=== PATIENT | male | born 1985 | race Caucasian/White ===

== ENCOUNTER 2024-06-20 18:44 | Inpatient (IN) | payer SELFPAY ==
[~2024-06-20] VITALS: Ht 167.6 cm; Wt 68.0 kg
[2024-06-20] MEDS: SODIUM CHLORIDE 0.9% 1,000 ML IV ONE (20:06)
[2024-06-20] MEDS: NALOXONE HCL 1MG/ML 2ML VIAL IV ONE (20:06)
[2024-06-20 20:20] LABS: BASOPHILS % 0.5 % (0.0-2.0); EOSINOPHILS % 0.8 % (0.0-5.0); HEMOGLOBIN. 12.5 g/dL (14.0-18.0); LYMPHOCYTES % 16.1 % (20.0-50.0); MEAN CORPUSCULAR HEMOGLOBIN 32.4 pg (28.0-32.0); MEAN CORPUSCULAR VOLUME 98.2 fL (80.0-94.0); MEAN PLATELET VOLUME 6.8 fl (7.4-10.4); MONOCYTES % 6.3 % (2.0-8.0); NEUTROPHILS % 76.3 % (40.0-76.0); PLATELET 249 x1000/uL (130-400); RED BLOOD CELL COUNT 3.87 mill/uL (4.7-6.1); RED CELL DISTRIBUTION WIDTH 12.6 % (11.6-14.6); WHITE BLOOD COUNT 5.9 x1000/uL (4.5-11.0)
[2024-06-20 20:27] LABS: CHLORIDE 106 mEq/L (98-107); POTASSIUM 3.7 mEq/L (3.5-5.1); SODIUM 136 mEq/L (136-145)
[2024-06-20 20:28] LABS: CALCIUM 7.9 mg/dL (8.7-10.4); CARBON DIOXIDE 23 mEq/L (21-32)
[2024-06-20 20:33] LABS: CREATININE 0.9 mg/dL (0.6-1.3); GLUCOSE 101 mg/dL (70-105)
[2024-06-20 20:47] LABS: UREA NITROGEN BLOOD < 5 mg/dL (9-23)
[2024-06-20 20:53] LABS: CLARITY URINE CLEAR (CLEAR); COLOR URINE YELLOW (YELLOW); GLUCOSE URINE NEGATIVE (NEGATIVE); KETONES URINE NEGATIVE (NEGATIVE); LEUKOCYTE ESTERASE URINE NEGATIVE (NEGATIVE); NITRITE URINE NEGATIVE (NEGATIVE); OCCULT BLOOD URINE NEGATIVE (NEGATIVE); PH URINE 5.5 (4.5-8.0); PROTEIN URINE 1+ (NEGATIVE); SPECIFIC GRAVITY URINE 1.005 (1.005-1.030); UROBILINOGEN URINE 0.2 E.U./dL (0.2-1.0)
[2024-06-20 21:22] LABS: BACTERIA URINE NONE SEEN; RBC URINE NONE SEEN /hpf (0-2); SQUAMOUS EPITHELIAL CELL URINE NONE SEEN /lpf (RARE/1+); WBC URINE NONE SEEN /hpf (0-2)
[2024-06-21] MEDS ORDERED: IPRATROPIUM/ALBUTEROL 0.5-3(2.5)MG/3ML NEB HHN PRN (04:15)
[2024-06-21] MEDS ORDERED: ACETAMINOPHEN 325MG TABLET PO PRN ×2 (04:15)
[2024-06-21] MEDS ORDERED: CLONIDINE 0.1MG TABLET PO PRN (04:15)
[2024-06-21] MEDS ORDERED: MAGNESIUM/ALUMINUM HYDROXIDE/SIMETHICONE 30ML UDC PO PRN (04:15)
[2024-06-21] MEDS ORDERED: ONDANSETRON HCL 4MG/2ML INJ IV PRN (04:15)
[2024-06-21] MEDS: SODIUM CHLORIDE 0.9% 3ML FLUSH IVF SCH (06:27)
[2024-06-21 10:11] VITALS: BP 144/82; PULSE 64; RESP 16; TEMP 36.5848
[2024-06-21 12:00] VITALS: BP 121/82; PULSE 76; RESP 18; TEMP 36.78072; O2SAT 99
[2024-06-21 16:00] VITALS: BP 132/76; PULSE 78; RESP 19; TEMP 37.00296; O2SAT 100
[2024-06-21 18:23] VITALS: BP 132/76; PULSE 78; TEMP 98.6; O2SAT 97
== END 2024-06-21 20:35 | disposition home or self-care (01) | DRG 812 ==
LOC: EDBD 18:44 → ER 18:44 → 5WST 23:09 → EDBEDREQ 23:14 → EDBEDREQTM 23:14 → 7EST 06-21 09:42
PROVIDERS: ADMIT Internal Medicine; ATTEND Internal Medicine
DX: T40.2X1A Poisoning by other opioids, accidental (unintentional), initial encounter (principal); G92.8 Other toxic encephalopathy; R06.81 Apnea, not elsewhere classified; I95.9 Hypotension, unspecified; R23.0 Cyanosis; Y92.89 Other specified places as the place of occurrence of the external cause; Z79.899 Other long term (current) drug therapy
CPT/HCPCS: 36415; 80048; 81003; 85025; 99285; J2310; J7030

== ENCOUNTER 2025-03-23 23:34 | Emergency (ER) | payer SELFPAY ==
[~2025-03-23] VITALS: Ht 177.8 cm; Wt 82.0 kg
[2025-03-23 23:38] VITALS: BP 151/94; PULSE 90; RESP 14; TEMP 36.8; O2SAT 100
== END 2025-03-24 00:25 | disposition left against medical advice (07) ==
LOC: ER 23:34
DX: T40.2X1A Poisoning by other opioids, accidental (unintentional), initial encounter (principal); Z79.899 Other long term (current) drug therapy; Y92.89 Other specified places as the place of occurrence of the external cause
CPT/HCPCS: 99283